=== PATIENT | female | born 1950 | race Two or more races ===

== ENCOUNTER 2019-04-23 07:45 | Emergency (ER) | payer MEDICARE, OTHER ==
[~2019-04-23] VITALS: Ht 154.9 cm; Wt 53.1 kg
[2019-04-23] MEDS ORDERED: ONDANSETRON HCL/PF 4 MG/2 ML VIAL ONE (08:31)
[2019-04-23 08:34] LABS: BASOPHILS # (AUTO) 0.1 /CMM (0.0-0.2); BASOPHILS % (AUTO) 0.8 % (0.0-2.0); HEMATOCRIT 41 % (33-45); HEMOGLOBIN 14.1 g/dL (11.5-14.8); LYMPHOCYTES # (AUTO) 1.8 /CMM (0.8-4.8); LYMPHOCYTES % (AUTO) 16.5 % (20.0-44.0); MEAN CORPUSCULAR HGB CONC 34 g/dl (31.0-36.0); MEAN CORPUSCULAR VOLUME 92 fL (82-100); MONOCYTES # (AUTO) 0.6 /CMM (0.1-1.30); MONOCYTES % (AUTO) 5.7 % (2.0-12.0); PLATELET COUNT (AUTO) 209 /CMM (150-450); RED BLOOD CELL COUNT(AUTO) 4.46 MIL/uL (4.0-5.2); WHITE BLOOD COUNT (AUTO) 10.9 K/uL (4.3-11.0)
[2019-04-23 08:41] LABS: CREATININE 0.8 mg/dL (0.6-1.3); POTASSIUM 3.7 mmol/L (3.5-5.1)
[2019-04-23 08:46] LABS: ALBUMIN 3.4 g/dL (3.4-5.0); BILIRUBIN,DIRECT 0.1 mg/dL (0.0-0.2); BILIRUBIN,TOTAL 0.3 mg/dL (0.2-1.0); TOTAL PROTEIN, SERUM 6.7 g/dL (6.4-8.2)
--- NOTE | 2019-04-23 08:55 | NUR ---
PT BROUGHT IN BY [facility] FOR FEELING DIZZY SINCE WAKING UP AROUND 0600 TODAY. PT GIVEN BLOOD PRESSURE MEDS IN AMBULANCE PT CURRENTLY WITH NAUSEA GIVEN MEDICATIOMS TAKEN TO CT SCAN AND BACK. MD RODRIGUEZ AWARE OF ALL FINDINGS. WILL CONTINUE TO MONITOR. PT ALERT AND AWARE ORIENTED X3.
[2019-04-23] MEDS ORDERED: ONDANSETRON HCL/PF 4 MG/2 ML VIAL IVP ONE (09:00)
[2019-04-23] MEDS ORDERED: PHENYTOIN SODIUM IV 1,000 MG in IV NS 0.9% 100 ML IV ONE (09:30)
[2019-04-23] MEDS ORDERED: NICARDIPINE IN NACL, ISO-OSM 200 ML IV ONE (09:30)
--- NOTE | 2019-04-23 09:46 | NUR ---
STARTED NICARDIPINE DRIP AT 5MG/HR AND PHENYTOIN AT 100MLS/HR WILL CONTINUE TO MONITOR
--- NOTE | 2019-04-23 09:47 | NUR ---
ADDENDUM: Intravenous End Time Documentation: Dilantin 1000 mg in 100 ML NS start time : 946 AM end time: 47 AM IV Site: LAC # 20 Port # 1
--- NOTE | 2019-04-23 09:55 | NUR ---
CALLED [facility] TRANSFER [facility]. WANT ME TO FAX CLINICALS. CALL BACK FOR TRANSFER CENTER. [phone]. FAX NUMBER. [phone].
[2019-04-23] MEDS ORDERED: IOHEXOL-350 100 ML VIAL IV ONE (09:57)
[2019-04-23] MEDS ORDERED: IV NS 0.9% 250 ML IV ONE (09:57)
[2019-04-23] MEDS ORDERED: CT SWABBABLE VALVE TRANS SET 1 EA INFUS.SET MC ONE (09:57)
--- NOTE | 2019-04-23 10:02 | NUR ---
FAXED CLINICALS TO [facility].
[2019-04-23] MEDS ORDERED: LORAZEPAM INJ 2 MG/ML VIAL ONE (10:20)
--- NOTE | 2019-04-23 10:28 | NUR ---
MARY GRACE FROM [facility] CALLED, PT WILL BE GOING TO ROOM 4506-1. 30 MINUTE AMBULANCE ETA CODE 3. NUMBER FOR REPORT [phone] EXT [phone].
[2019-04-23] MEDS ORDERED: LORAZEPAM INJ 2 MG/ML VIAL IVP ONE (10:30)
--- NOTE | 2019-04-23 10:58 | NUR ---
REPORT GIVEN TO DIANNE NICHOLE PT GOING TO [facility] ROOM 9486-1 ADMITTED UNDER MD NORTON
--- NOTE | 2019-04-23 11:16 | NUR ---
[facility] PICKED UP PT TO TRANSPORT TO [facility] # [id number]
[2019-04-23 11:17] VITALS: BP 131/56
== END 2019-04-23 11:18 | disposition short-term general hospital (02) ==
LOC: ER 07:47
DX: I60.7 Nontraumatic subarachnoid hemorrhage from unspecified intracranial artery (principal); I10 Essential (primary) hypertension
CPT/HCPCS: 36415; 70450; 70496; 70498; 71045; 80048; 80076; 84484; 85025; 85730; 93005; 96365; 96375; 99291; J1165; J2060; J2405; J7030; J7050; Q9967